=== PATIENT | male | born 1980 | race Caucasian/White ===

== ENCOUNTER 2017-04-28 15:33 | Emergency (ER) | payer SELFPAY ==
[~2017-04-28] VITALS: Ht 180.3 cm; Wt 68.0 kg
[2017-04-28] MEDS ORDERED: DIPHTH,PERTUSS(ACELL),TET TOX 0.5 ML DISP.SYRIN. VAX IM ONE (16:00)
[2017-04-28] MEDS ORDERED: LIDOCAINE 1%/EPI 1:100,000 20 ML VIAL. INJ ONE (16:00)
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
[2017-04-28 16:19] VITALS: BP 102/59
--- NOTE | 2017-04-28 16:20 | RAD ---
Left hand, 3 views, 04/28/2017: History: Laceration The patient positioning is suboptimal. No fracture or dislocation is identified. A partially radiopaque bandage is projected over the proximal aspect of the thumb. IMPRESSION: No acute bony abnormality is detected.
== END 2017-04-28 17:42 | disposition home or self-care (01) ==
LOC: ER 15:33
DX: S61.412A Laceration without foreign body of left hand, initial encounter (principal); W26.0XXA Contact with knife, initial encounter; Y93.89 Activity, other specified; Y92.89 Other specified places as the place of occurrence of the external cause; Y99.8 Other external cause status
CPT/HCPCS: 12001; 73130; 90471; 90715; 99284; J3490

== ENCOUNTER 2017-05-06 00:16 | Emergency (ER) | payer SELFPAY ==
[2017-05-06] MEDS ORDERED: fentaNYL PF VIAL 100 MCG/2 ML VIAL ONE (00:28)
[2017-05-06] MEDS ORDERED: ONDANSETRON PF 4 MG/2 ML VIAL. ONE (00:28)
[2017-05-06 00:32] LABS: BASO # 0.1 x10^3/uL (0.0-0.2); BASO % 1 % (0-3); EOS % 3 % (0-3); HEMATOCRIT 44.2 % (39.0-53.0); HEMOGLOBIN 15.2 g/dL (13.0-17.5); LYMPH # 2.2 x10^3/uL (1.0-4.8); LYMPH % 13 % (24-48); MEAN CORPUSCULAR HEMOGLOBIN 30 pg (25-35); MEAN CORPUSCULAR HGB CONC 34 g/dL (31-37); MEAN CORPUSCULAR VOLUME 89 fL (79-100); MONO % 10 % (0-9); NEUT % 74 % (31-73); PLATELET COUNT 389 x10^3/uL (140-400); RED BLOOD COUNT 4.99 x10^6/uL (4.30-5.70); RED CELL DISTRIBUTION WIDTH 12.9 % (11.5-14.5)
[2017-05-06 00:42] LABS: CALCIUM 9.7 mg/dL (8.5-10.1); GFR 84.5; POTASSIUM 3.6 mmol/L (3.5-5.1)
[2017-05-06 00:43] LABS: PROTHROMBIN TIME PATIENT 12.7 SEC (11.7-14.0)
[2017-05-06 00:48] LABS: ALBUMIN 4.1 g/dL (3.4-5.0); ALBUMIN/GLOBULIN RATIO 0.9 (1.0-1.7); MAGNESIUM 2.1 mg/dL (1.8-2.4); TOTAL BILIRUBIN 0.6 mg/dL (0.2-1.0); TOTAL PROTEIN 8.6 g/dL (6.4-8.2)
[2017-05-06] MEDS ORDERED: IOHEXOL 300 MG/ML 100ML VIAL. IV ONE (01:00)
[2017-05-06] MEDS ORDERED: CONTRAST GIVEN MC PRN (01:15)
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
[2017-05-06] MEDS ORDERED: oxyCODONE/APAP 5/325 1 TAB TABLET PO ONE (02:15)
[2017-05-06] MEDS ORDERED: HYDR-971 PO (02:15)
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
[2017-05-06 04:58] LABS: % BASOS 1 % (0-3); % EOS 6 % (0-5); PLT ESTIMATE ADEQUATE (ADEQUATE)
[2017-05-06 04:59] LABS: TOXIC VACUOLATION SLIGHT
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
== END 2017-05-06 02:50 | disposition home or self-care (01) ==
LOC: EEVIPCON 00:16 → ER 00:16
DX: S42.102A Fracture of unspecified part of scapula, left shoulder, initial encounter for closed fracture (principal); F12.10 Cannabis abuse, uncomplicated; W34.00XA Accidental discharge from unspecified firearms or gun, initial encounter; Y93.89 Activity, other specified; Y99.8 Other external cause status; Y92.89 Other specified places as the place of occurrence of the external cause
CPT/HCPCS: 36415; 71010; 71260; 80053; 83735; 85007; 85025; 85610; 85730; 86850; 86900; 86901; 99285; G0480; Q9967

== ENCOUNTER 2017-10-18 16:04 | Emergency (ER) | payer SELFPAY | END 2017-10-18 16:43 | disposition home or self-care (01) | LOC: ER 16:04 | DX: L03.115 Cellulitis of right lower limb (principal); W57.XXXA Bitten or stung by nonvenomous insect and other nonvenomous arthropods, initial encounter; Y93.89 Activity, other specified; Y99.8 Other external cause status; Y92.89 Other specified places as the place of occurrence of the external cause | CPT/HCPCS: 99283 ==